=== PATIENT | female | born 1930 | race Caucasian/White ===

== ENCOUNTER 2017-04-05 17:01 | Inpatient (IN) | payer MEDICARE ==
[2017-04-05] MEDS ORDERED: Morphine INJ* 2 MG/ML 1 ML SYRINGE IV ONE (17:24)
[2017-04-05] MEDS ORDERED: Acetaminophen TAB* 325 MG PO ONE (17:24)
[2017-04-05 17:51] LABS: Hematocrit 40 % (35-47); Mean Corpuscular HGB Conc 33 g/dl (31-36); Mean Corpuscular Hemoglobin 28 pg (27-31); Mean Corpuscular Volume 86 fL (80-97); Mean Platelet Volume 8 um3 (7.4-10.4); Red Blood Count 4.58 10^6/ul (4.0-5.4); Red Cell Distribution Width 16 % (10.5-15); White Blood Count 6.9 10^3/ul (3.5-10.8)
[2017-04-05 18:04] LABS: BUN/Creatinine Ratio 29.7 (8-20); Calcium 9.9 mg/dL (8.6-10.3); EGFR Non-African American 39.6 (>60)
--- NOTE | 2017-04-05 18:15 | RAD ---
HISTORY: Fall, pain, external rotation of the hip COMPARISONS: None VIEWS: 1: frontal view of the chest FINDINGS: CARDIOMEDIASTINAL SILHOUETTE: The cardiomediastinal silhouette is normal. LESLIE: The leslie are normal. PLEURA: The costophrenic angles are sharp. No pleural abnormalities are noted. LUNG PARENCHYMA: There is hyperinflation. ABDOMEN: The upper abdomen is clear. There is no subphrenic gas. BONES AND SOFT TISSUES: No bone or soft tissue abnormalities are noted. OTHER: None. IMPRESSION: HYPERINFLATION. NO ACTIVE CARDIOPULMONARY DISEASE.
--- NOTE | 2017-04-05 18:15 | RAD ---
HISTORY: Fall, pain, external rotation COMPARISONS: None VIEWS: 3, Frontal view of the pelvis with frontal and crosstable lateral views of the right hip FINDINGS: BONE DENSITY: There is diffuse osteopenia. BONES: There is a minimally displaced intertrochanteric fracture of the right femur JOINTS: There is no arthropathy. ALIGNMENT: There is no dislocation. SOFT TISSUES: Unremarkable. OTHER FINDINGS: Degenerative changes are noted of the spine IMPRESSION: MINIMALLY DISPLACED INTERTROCHANTERIC FRACTURE OF THE RIGHT FEMUR
[2017-04-05] MEDS ORDERED: HYDROcodone/ACETAMIN 5-325 MG* 1 TAB PO ONE (18:29)
[2017-04-05] MEDS ORDERED: Acetaminophen TAB* 325 MG PO PRN (18:57)
[2017-04-05] MEDS ORDERED: Ondansetron INJ* 2 MG/ML VIAL IV PRN (18:57)
[2017-04-05] MEDS ORDERED: Morphine INJ* 2 MG/ML 1 ML SYRINGE IV PRN (18:57)
--- NOTE | 2017-04-05 19:06 | RAD ---
HISTORY: Right hip fracture COMPARISONS: Right hip dated April 05, 2017 VIEWS: 4, Frontal and lateral views of the right femur FINDINGS: BONE DENSITY: There is diffuse osteopenia. BONES: Again noted is a minimally displaced intertrochanteric fracture of the right femur. JOINTS: There is osteoarthritis of the knee. ALIGNMENT: There is no dislocation. SOFT TISSUES: There is peripheral arterial calcification. OTHER FINDINGS: None. IMPRESSION: 1. AGAIN NOTED IS A MINIMALLY DISPLACED FRACTURE OF THE PROXIMAL RIGHT FEMUR. 2. OSTEOPENIA. 3. OSTEOARTHRITIS. 4. PERIPHERAL ARTERIAL DISEASE.
[2017-04-05] MEDS ORDERED: Heparin VIAL(*) 5000 UNITS/ML VIAL (FIVE THOUSAND) SUBCUT SCH (22:00)
[2017-04-05] MEDS: Lisinopril TAB* 5 MG PO SCH (22:46)
--- NOTE | 2017-04-05 23:10 | HP ---
CC: Dr. Miller; Dr. Burns HISTORY AND PHYSICAL: DATE OF ADMISSION: 04/05/17 TIME OF EVALUATION: 6:35 p.m. PRIMARY CARE PROVIDER: Dr. Miller. CONSULTING ORTHOPEDIST: Dr. Burns. CHIEF COMPLAINT: Hip pain. HISTORY OF PRESENT ILLNESS: Ms. Wang is an 87-year-old lady with a past medical history of hypertension, hyperlipidemia, status post carotid endarterectomy, who presents to the emergency room after sustaining a fall in her garden, complaining of right hip pain. The patient states she was in her usual state of health today, and she was outside working in her garden, when she lost her balance, fell forward towards her right. She says that she immediately developed right hip pain and she was unable to stand up. She denies hitting her head. She denies neck pain. She did have some abrasions on her right arm. She states that her neighbor heard her cry for help and came to her aid. She was brought into the emergency room by EMS and she was found to have a right intertrochanteric femur fracture and the hospitalist service was called for further evaluation. The patient states that she is fairly healthy. She is active around her home. She is able to clean up her home, do her own grocery shopping and cooking. She states that she swims, laps an hour a day, every day at [facility]. She is able to walk more than a mile and she denies any chest pain, palpitations, or shortness of breath with it. She has noted no recent change in her health and she is feeling fairly well with her only complaint at this point is right hip pain when she moves. PAST MEDICAL HISTORY: 1. Hypertension. 2. Hyperlipidemia. 3. History of carotid endarterectomy. MEDICATION LIST: 1. Aspirin 81 mg p.o. daily. 2. Lisinopril unknown dose. 3. Unknown medication for cholesterol. ALLERGIES: No known drug allergies. FAMILY HISTORY: Reviewed and significant for longevity. Her mother had a history of hypertension. Her mother and father of old age in their 90s. SOCIAL HISTORY: The patient smoked from age 22 to 40s a pack a day and she quit. She denies alcohol or drug use. Surrogate decision maker is her daughter , Arlen Leonard, phone number is [phone]. REVIEW OF SYSTEMS: A 14-point review of systems was performed and all the pertinent negative and positive findings are in the HPI. PHYSICAL EXAMINATION GENERAL: The patient is a pleasant elderly lady, lying in the ER stretcher, in no acute distress. VITAL SIGNS: Temperature 97.7, heart rate is 67, respiratory rate is 14, oxygen saturation is 96% on room air, blood pressure is 163/66. HEENT: Pupils are equal. Moist mucous membranes. CVS: Normal S1 and S2. Regular rate and rhythm with no murmurs. CHEST: Breath sounds present bilaterally with no added sounds. ABDOMEN: Soft, nontender, nondistended. Bowel sounds are present. EXTREMITIES: The right lower extremity is externally rotated. She has good pulses, good capillary refill, sensation is intact. She has abrasions to her right forearm. NEURO: She is alert and oriented x3. Able to move all 4 extremities. DIAGNOSTIC STUDIES/LAB DATA: CBC showed a WBC of 6.9, hemoglobin of 13, hematocrit of 40, platelets of 237. Chemistry showed a sodium of 142, potassium of 4, chloride of 103, bicarb of 25, BUN of 38, creatinine of 1.2, glucose 103, calcium 9.9. Chest x-ray showed some hyperinflation, but no active cardiopulmonary disease. Right hip x-ray showed minimally displaced intertrochanteric fracture of the right femur. ASSESSMENT AND PLAN: Ms. Wang is an 87-year-old lady with a past medical history of hypertension, hyperlipidemia, status post carotid endarterectomy, that presented to the emergency room after a mechanical fall in her garden, complaining of right hip pain, found to have a right hip intertrochanteric fracture. 1. Right intertrochanteric femur fracture. The patient will be admitted to the surgical floor and a consultation was already requested with Dr. Burns for evaluation for surgical repair. The patient at this time is bedrest. We are going to put a Vizcarra catheter for comfort and she will receive symptomatic treatment. 2. Hypertension is uncontrolled at this time, probably secondary to pain. I am going to resume the patient's lisinopril at 5 mg a day. She does not know her exact dose, but I am going to try to obtain records from Dr. Miller's office. 3. History of carotid endarterectomy. I would like to continue her aspirin perioperatively if approved by surgeon. If the bleeding risk is unacceptable, we will then have to stop it. 4. DVT prophylaxis. The patient has a score of 8 on the DVT prophylaxis Risk Assessment Guide, and she will be started on subcutaneous heparin and SCDs. 5. Code status is full. TIME SPENT: Approximately 60 minutes was spent with the patient interview, medical records review, physical examination to complete this admission, more than half of this time was spent [id number] with the patient in coordination of care. [id number]/[facility] #: [id number] JULIO
--- NOTE | 2017-04-06 00:08 | HP ---
HISTORY AND PHYSICAL: ADDENDUM: I contacted the physician on-call covering for Dr. Miller (Dr. Chapis Mitchell). Unfortunately , she does not have access to the patient's record at this time. The patient obtains her medication from [facility], but this pharmacy is also closed at this time, so we will try to get her upd ated medication list tomorrow morning. Regarding her surgical risk, the patient seems to have great exercise capacity. She has no complaint s of chest pain, palpitations, or shortness of breath. At the time of this dictation, her EKG was n ot yet done, but if her EKG shows no major changes, I believe she is optimized for her surgical proc edure. The patient has RCRI of 0 or predicted 0.5% risk of cardiac complication. [id number]/[facility] #: [id number]
[2017-04-06 06:24] LABS: Hematocrit 32 % (35-47); Hemoglobin 10.8 g/dl (12.0-16.0); Mean Corpuscular HGB Conc 34 g/dl (31-36); Mean Corpuscular Hemoglobin 29 pg (27-31); Mean Corpuscular Volume 86 fL (80-97); Mean Platelet Volume 8 um3 (7.4-10.4); Red Blood Count 3.77 10^6/ul (4.0-5.4); Red Cell Distribution Width 15 % (10.5-15)
[2017-04-06 06:38] LABS: BUN/Creatinine Ratio 30.1 (8-20); Calcium 8.9 mg/dL (8.6-10.3); EGFR African American 73.7 (>60); EGFR Non-African American 57.3 (>60); Potassium 3.9 mmol/L (3.5-5.0)
--- NOTE | 2017-04-06 08:32 | PN ---
Progress Note - Progress Note Date of Service: 04/06/17 Note: H and P update Full h and p dictated on system. Plan for R hip IMN for her intertrochanteric hip fracture today Pt optimized per medicine
[2017-04-06] MEDS ORDERED: Aspirin EC Low Dose* 81 MG TAB.EC PO SCH (09:00)
[2017-04-06] MEDS ORDERED: NS 0.9% 1000 ML* 1,000 ML IV SCH (09:30)
--- NOTE | 2017-04-06 09:39 | CONS ---
CC: Primary Care Physician CONSULTATION REPORT:History of Physical Date of admission 04/05/17 DATE OF service and date of CONSULT: 04/06/17 CHIEF COMPLAINT: Right hip pain. HISTORY OF PRESENT ILLNESS: Briefly, Estee Wang is a fairly healthy 87-year- old female, who was gardening and she tripped over something in the garden, landed hard on her right elbow and right hip. She was unable to weightbear. She was brought to the emergency room by EMS and was found to have a right intertrochanteric hip fracture. She is very active. She is a community ambulator, does not use any assistive devices. She does her own grocery shopping, cooking, she swims laps an hour a day at [facility]. She walks more than a mile, and otherwise is in her usual state of health. PAST MEDICAL HISTORY: Significant for hypertension and hyperlipidemia. PAST SURGICAL HISTORY: Significant for carotid endarterectomy. MEDICATIONS: Include: 1. Aspirin. 2. Lisinopril. 3. Cholesterol medications. ALLERGIES: NKDA. FAMILY HISTORY: Reviewed and significant for longevity. Mother, history of hypertension. Father and mother in their 90s. SOCIAL HISTORY: She quit smoking in her 40s. She denies alcohol or drug use. Her surrogate decision maker is her daughter. REVIEW OF SYSTEMS: A 14-point review of systems was reviewed with the patient, significant for right hip pain, otherwise remainder of systems is negative. PHYSICAL EXAM: She is in no acute distress. She is well developed, well nourished. She is oriented x3. She has pleasant mood and normal affect. She is sitting comfortably in the bed. Vitals: Temperature of 98.3, pulse rate 66 , respiratory rate 16, O2 saturation 97% on room air, and blood pressure 141/ 51. EOMI. Chest is clear to auscultation. Heart has regular rate and rhythm. Abdomen is soft and nontender. Examination of the right hip demonstrates the skin is intact. The right hip is externally rotated and shortened. She is able to flex and extend her toes. Dorsiflexion and plantar flexion are equal. Sensate to light touch about the first dorsal webspace, medial, lateral, dorsal , and plantar foot. She has 2+ PT pulse. Her calf is soft and nontender. Examination of the right elbow demonstrates there is an abrasion there with a dressing on top of it. She has full range of motion of her elbow. DIAGNOSTIC STUDIES/LAB DATA: X-rays demonstrate a right intertrochanteric hip fracture. White blood cell count is 7, hematocrit of 32, and platelet count of 189. Sodium of 133, potassium 3.9, chloride 101, carbon dioxide 25, BUN 28, creatinine 0.93, glucose 120, and calcium 8.9. ASSESSMENT AND PLAN: She has a right intertrochanteric hip fracture. She is an ambulator and is fairly healthy. We will plan for a right hip IM nail. She is pending medical optimization, but we will likely take her today after Medicine contacts us. Risks and benefits discussed at length with the patient included, but not limited to, bleeding; infection; damage to nerves, vessels, and surrounding structures; wound nonhealing; persistent pain; need for further surgery; refracture; failure of the hardware; nonunion; malunion; risk of anesthesia; risk of DVT. We also talked about loss of mobility and possibly needing the SNF after surgery. We will plan for right hip TFN later this morning. [id number]/[facility] #: [id number] MTDD
[2017-04-06] MEDS ORDERED: ceFAZolin 2 GM PREMIX (*) 50 ML IVPB ONE (10:47)
[2017-04-06] MEDS ORDERED: KETAMINE HCL* 50 MG/ML 10 ML VIAL ONE (11:13)
[2017-04-06] MEDS ORDERED: Midazolam* 1 MG/ML 5 ML VIAL (5 MG) ONE (11:13)
[2017-04-06] MEDS ORDERED: fentaNYL* 50 MCG/ML 2 ML VIAL (100 MCG VIAL) IV PRN (11:31)
[2017-04-06] MEDS ORDERED: Ondansetron INJ* 2 MG/ML VIAL IV PRN (11:31)
[2017-04-06] MEDS: Lisinopril TAB* 5 MG PO SCH (11:43)
[2017-04-06] MEDS ORDERED: Phenylephrine IV* 40 MCG/ML 10 ML SYRINGE ONE (12:16)
[2017-04-06] MEDS ORDERED: EPHEDrine (Pressors)* 50 MG/ML VIAL ONE (12:32)
[2017-04-06] MEDS ORDERED: Bupivacaine 0.25% SDV* 30 ML ONE (13:16)
--- NOTE | 2017-04-06 13:38 | PN ---
Subjective Date of Service: 04/06/17 Interval History: HOSPITALIST PROGRESS NOTE Patient seen and examined at bedside. She offers no complaints at this time. Denies pain. Family History: Unchanged from Admission Social History: Unchanged from Admission Past Medical History: Unchanged from Admission Objective Active Medications: Acetaminophen (Tylenol Tab*) 650 mg PO Q6H PRN PRN Reason: pain/fever Aspirin (Aspirin Ec Low Dose*) 81 mg PO DAILY [facility] Last Admin: 04/06/17 11:43 Dose: Not Given Sodium Chloride (Ns 0.9% 1000 Ml*) 1,000 mls @ 75 mls/hr IV PER RATE [facility] Lisinopril (Prinivil Tab*) 5 mg PO DAILY [facility] Last Admin: 04/06/17 11:43 Dose: Not Given Morphine Sulfate (Morphine Inj (Syringe)*) 2 mg IV Q4H PRN PRN Reason: PAIN Ondansetron HCl (Zofran Inj*) 4 mg IV Q6H PRN PRN Reason: NAUSEA Vital Signs 04/06/17 04/06/17 04/06/17 03:36 07:31 08:00 Temperature 97.4 F 98.3 F Pulse Rate 63 66 Respiratory 16 16 16 Rate Blood Pressure 131/49 141/51 (mmHg) O2 Sat by Pulse 97 97 Oximetry Oxygen Devices in Use Now: None Appearance: Pleasant elderly lady lying in bed in NAD. Eyes: No Scleral Icterus Ears/Nose/Mouth/Throat: Mucous Membranes Moist Neck: Trachea Midline, - - No carotid bruits Respiratory: Symmetrical Chest Expansion and Respiratory Effort, Clear to Auscultation Cardiovascular: RRR - Normal S1 and S2 Abdominal: NL Sounds; No Tenderness; No Distention Extremities: - - RLE externally rotated, good capillary refill, sensation intact , can wiggle toes Neurological: Alert and Oriented x 3, NL Muscle Strength and Tone Lines/Tubes/Other Access: Clean, Dry and Intact Peripheral IV Result Diagrams: 04/06/17 05:36 04/06/17 05:36 Assess/Plan/Problems-Billing Assessment: Mrs. Wang is an 87yo F with PMH of HTN, HLD, s/p bilateral carotid endarterectomy, who presented to ED after a mechanical fall, found to have a right intertrochanteric femur fracture. - Patient Problems (1) Fracture, intertrochanteric, right femur Comment: - Management as per Ortho. - Patient is medically optmized for proposed procedure. (2) HTN (hypertension) Comment: - Better controlled. - Continue lower dose Lisinopril. (3) H/O carotid endarterectomy Comment: - Will continue Aspirin perioperatively. - As per daughter, patient was supposed to have carotid US as outpatient. She would like to pursue it while she's here. (4) DVT prophylaxis Comment: - As per orthopedics. (5) Full code status Status and Disposition: Inpatient for management of hip fracture, requiring >48h for stabilization. Dr. Miller to assume patient's care tomorrow.
--- NOTE | 2017-04-06 13:49 | RAD ---
INDICATION: Right femur internal fixation. Fall, right femur fracture COMPARISONS: April 05, 2017 TECHNIQUE: Fluoroscopy was provided for a surgical procedure. Total fluoroscopy time is: 65 seconds FINDINGS: Spot images demonstrate internal fixation of the right femur IMPRESSION: FLUOROSCOPY WAS PROVIDED FOR A SURGICAL PROCEDURE CPT II Codes: 6045F
[2017-04-06] MEDS: oxyCODONE/Acetamin 5/325 MG* TAB PO PRN (16:37)
[2017-04-06] MEDS ORDERED: ceFAZolin 1 GM* Q8H x 3 doses IVPB SCH ×2 (20:00)
[2017-04-06] MEDS: ceFAZolin 1 GM* Q8H x 3 doses IVPB SCH ×2 (20:21)
[2017-04-07] MEDS: ceFAZolin 1 GM* Q8H x 3 doses IVPB SCH ×4 (04:03→12:19)
[2017-04-07] MEDS: oxyCODONE/Acetamin 5/325 MG* TAB PO PRN ×3 (04:03→15:54)
--- NOTE | 2017-04-07 09:04 | PN ---
Subjective - Subjective Reason for Note: Progress Note History: She is 1 day post right hip internal fixation. She tolerated the procedure well and is sitting in a chair eating b'fast. She is fully awake, oriented and conversational. She describes this as a mechanical fall after tripping on a cement block. She is fit - she continues to work at 87 years and swims every day. She denies any nausea, uncontrolled pain or cardiovascular symptoms Active Problems: Active Problems Fracture, intertrochanteric, right femur (Acute) S72.141A - Management as per Ortho. - Patient is medically optmized for proposed procedure. Full code status (Acute) Z78.9 Osteoporosis (Acute) M81.0 Chronic renal disease, stage III (Chronic) N18.3 DVT prophylaxis (Chronic) [id number] - As per orthopedics. H/O carotid endarterectomy (Chronic) Z98.890 - Will continue Aspirin perioperatively. - As per daughter, patient was supposed to have carotid US as outpatient. She would like to pursue it while she 's here. HTN (hypertension) (Chronic) I10 - Better controlled. - Continue lower dose Lisinopril. Current Medications: Current Medications Acetaminophen (Tylenol Tab*) 650 mg PO Q6H PRN PRN Reason: pain/fever Enoxaparin Sodium (Lovenox(*)) 30 mg SUBCUT 1200 INDIRA Sodium Chloride (Ns 0.9% 1000 Ml*) 1,000 mls @ 75 mls/hr IV PER RATE [facility] Last Admin: 04/07/17 05:36 Dose: 75 mls/hr Cefazolin Sodium 1 gm/ Sodium (Chloride) 50 mls @ 200 mls/hr IVPB Q8H [facility] Stop: 04/07/17 12:14 Last Admin: 04/07/17 04:03 Dose: 200 mls/hr Lisinopril (Prinivil Tab*) 5 mg PO DAILY [facility] Last Admin: 04/06/17 11:43 Dose: Not Given Morphine Sulfate (Morphine Inj (Syringe)*) 2 mg IV Q4H PRN PRN Reason: PAIN Ondansetron HCl (Zofran Inj*) 4 mg IV Q6H PRN PRN Reason: NAUSEA Oxycodone/Acetaminophen (Percocet 5/325 Tab*) 1 tab PO Q4H PRN PRN Reason: PAIN Last Admin: 04/07/17 04:03 Dose: 1 tab Oxycodone/Acetaminophen (Percocet 5/325 Tab*) 2 tab PO Q4H PRN PRN Reason: MODERATE PAIN Last Admin: 04/06/17 16:37 Dose: 2 tab Home Medications: Home Medications Medication Instructions Recorded Confirmed Type Aspirin [Aspirin 81 MG TAB] 81 mg PO DAILY 04/06/17 04/06/17 History Calcium 800 units PO DAILY 04/06/17 04/06/17 History Lisinopril [Zestril 20 MG-] 20 mg PO DAILY 04/06/17 04/06/17 History Multivitamins 1 tab PO DAILY 04/06/17 04/06/17 History Pravastatin Sodium [Pravachol] 80 mg PO DAILY 04/06/17 04/06/17 History Solifenacin(NF) [Vesicare(NF)] 5 mg PO DAILY 04/06/17 04/06/17 History Allergies: Allergies Allergy/AdvReac Type Severity Reaction Status Date / Time No Known Allergies Allergy Verified 10/30/15 13:37 Objective - Vital Signs Vital Signs: Vital Signs 04/06/17 04/06/17 04/06/17 13:40 13:45 13:50 Temperature 97.7 F Pulse Rate 93 89 87 Respiratory 20 20 20 Rate Blood Pressure 115/49 110/53 113/48 (mmHg) O2 Sat by Pulse 97 99 99 Oximetry 04/06/17 04/06/17 04/06/17 13:55 14:00 14:15 Temperature Pulse Rate 87 85 96 Respiratory 20 18 18 Rate Blood Pressure 115/52 118/60 124/61 (mmHg) O2 Sat by Pulse 99 99 97 Oximetry 04/06/17 04/06/17 04/06/17 14:24 14:55 16:00 Temperature 97.5 F 98.3 F Pulse Rate 96 94 108 Respiratory 18 15 17 Rate Blood Pressure 134/57 130/50 129/41 (mmHg) O2 Sat by Pulse 97 99 95 Oximetry 04/06/17 04/06/17 04/06/17 16:37 17:05 18:37 Temperature 98.2 F Pulse Rate 98 Respiratory 16 16 18 Rate Blood Pressure 128/55 (mmHg) O2 Sat by Pulse 94 Oximetry 04/06/17 04/06/17 04/06/17 19:15 19:20 21:04 Temperature 97.9 F 98.3 F Pulse Rate 96 90 Respiratory 16 16 14 Rate Blood Pressure 103/50 105/51 (mmHg) O2 Sat by Pulse 95 95 Oximetry 04/06/17 04/07/17 04/07/17 23:34 04:03 04:12 Temperature 98.1 F 98.4 F Pulse Rate 85 90 Respiratory 18 18 20 Rate Blood Pressure 114/42 137/51 (mmHg) O2 Sat by Pulse 93 97 Oximetry 04/07/17 04/07/17 06:03 07:20 Temperature 98.2 F Pulse Rate 88 Respiratory 16 16 Rate Blood Pressure 110/39 (mmHg) O2 Sat by Pulse 92 Oximetry - Intake and Output Intake and Output: Intake & Output 04/04/17 04/05/17 04/06/17 04/07/17 11:59 11:59 11:59 11:59 Intake Total 325 2383 Output Total 575 825 Balance -250 1558 Weight 115 lb Intake: IV Fluids 1980 LR 1000 NS (0.9%) 980 IVPB 113 ABX - CEFAZOLIN 113 Oral 325 290 Output: Vizcarra 575 625 Estimated Blood Loss 200 Other: # Bowel Movements 0 ADLs: Meal Record Start: 04/05/17 20: 54 Freq: Status: Active Created 04/05/17 20:54 System (Rec: 04/05/17 20:54 System [id number]) Intake and Output Start: 04/05/17 17: 15 Freq: Status: Active Created 04/05/17 17:15 System (Rec: 04/05/17 17:15 System [id number]) Intake and Output Start: 04/05/17 20: 54 Freq: DAILY@0600,1400,2200 Status: Active Created 04/05/17 20:54 System (Rec: 04/05/17 20:54 System [id number]) Document 04/05/17 22:00 [id number] (Rec: 04/05/17 22:14 [id number] [id number]) Document 04/06/17 05:45 [id number] (Rec: 04/06/17 05:46 [id number] SSU-M13) Document 04/06/17 09:55 [id number] (Rec: 04/06/17 15:37 [id number] SSU-C08) Document 04/06/17 22:00 [id number] (Rec: 04/06/17 22:33 [id number] SSU-C11) Document 04/07/17 05:56 [id number] (Rec: 04/07/17 05:57 [id number] SSU-C11) - Physical Exam General: No Cyanosis, No Anemia, No Jaundice, No Clubbing Lungs and Chest: Yes: Chest Expansion Full, Chest Expansion Symetrica, Percussion Note Resonant, Vessicular Breath Sounds. No: Crackles, Wheezes, Respiratory Distress Heart Rate and Rhythm: Regular JVP: Not Elevated Additional Cardiovascular: Yes: Normal Heart Sounds. No: Heart Murmur, Pedal Edema Abdominal Exam: Yes: Soft, Bowel Sounds Present. No: Distention, Abdominal Tenderness Assessment - Problem List Assessment: Patient Problems Fracture, intertrochanteric, right femur (Acute) Full code status (Acute) Osteoporosis (Acute) Chronic renal disease, stage III (Chronic) DVT prophylaxis (Chronic) H/O carotid endarterectomy (Chronic) HTN (hypertension) (Chronic) Plan: Fracture, intertrochanteric, right femur (Acute) She is 1 day post right him intramedullary nailing. She has tolerated the procedure well. She is fit usually and she swims daily. I think she is an excellent candidate for PMRU and will obtain a consultation. I will have the Vizcarra removed. I will stop IVF. 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 I discussed the above with the patient.
[2017-04-07] MEDS: Lisinopril TAB* 5 MG PO SCH (09:40)
--- NOTE | 2017-04-07 10:06 | PN ---
Progress Note - Progress Note Date of Service: 04/07/17 SOAP: Subjective: []Patient seen OOB in chair, reading paper. She is alert and oriented, pleasant. States she had moderate pain upon transferring to chair this am but quite comfortable sitting currently. Denies SOB, CP, dizziness. Objective: [] Vital Signs Temp 98.2 F 04/07/17 07:20 Pulse 88 04/07/17 07:20 Resp 16 04/07/17 09:40 BP 110/39 04/07/17 07:20 Pulse Ox 92 04/07/17 07:20 Intake & Output 04/06/17 04/07/17 04/07/17 18:59 06:59 18:59 Intake Total 1000 1383 306 Output Total 600 425 100 Balance 400 958 206 Intake: IV Fluids 1000 980 306 LR 1000 NS (0.9%) 980 306 IVPB 113 ABX - CEFAZOLIN 113 Oral 290 Output: Vizcarra 400 425 100 Estimated Blood Loss 200 Right hip dressing is dry and intact calf NT and soft +DF/PF right ankle sensation intact distally Assessment: []s/p TFN for IT fracture right hip POD #1 Plan: []PT/OT WBAT RLE Lovenox Lives alone, probable rehab, PMRU consult placed by Dr. Miller
[2017-04-07] MEDS: Enoxaparin(*) 30 MG/0.3 ML SYR SUBCUT SCH (12:21)
--- NOTE | 2017-04-07 22:24 | PN ---
Progress Note - Progress Note Date of Service: 04/07/17 Note: seen at 7 pm in bed eating dinner. alert and pleasant. some discomfort but was able to ambulate with walker today. denies sob, cp, numbness, tingling Temp Pulse Resp BP Pulse Ox 98.8 F 80 21 105/32 95 04/07/17 19:25 04/07/17 19:25 04/07/17 19:25 04/07/17 19:25 04/07/17 19:25 NAD. right hip dressing intact. able to DF/PF foot, silt grossly distally. brisk cap refill. calf soft, nontender A/P POD#1 from R hip tfn doing well. wbat pt/ot completed post op abx dvt ppx 6 weeks dressing change tomorrow dispo when stable snf or pmru
[2017-04-08] MEDS: oxyCODONE/Acetamin 5/325 MG* TAB PO PRN ×4 (02:41→21:25)
[2017-04-08 06:40] LABS: Hematocrit 22 % (35-47); Hemoglobin 7.6 g/dl (12.0-16.0); Mean Corpuscular HGB Conc 34 g/dl (31-36); Mean Corpuscular Hemoglobin 29 pg (27-31); Mean Corpuscular Volume 87 fL (80-97); Mean Platelet Volume 8 um3 (7.4-10.4); Red Blood Count 2.58 10^6/ul (4.0-5.4); Red Cell Distribution Width 16 % (10.5-15); White Blood Count 7.8 10^3/ul (3.5-10.8)
[2017-04-08 06:55] LABS: BUN/Creatinine Ratio 16.2 (8-20); EGFR African American 60.1 (>60); EGFR Non-African American 46.7 (>60); Potassium 4.1 mmol/L (3.5-5.0)
--- NOTE | 2017-04-08 08:29 | PN ---
Subjective - Subjective Reason for Note: Progress Note History: She is doing well. She managed to work well with PT and OT yesterday and they think she is an excellent candidate for PMRU if her insurance agrees to cover this, otherwise she will require a period at a SNF - she is accepting of this. She has no pain at rest. She is taking oxycodone and last night she had an episode of disorientation according to the RN notes. However, she is fully oriented and conversational this morning. She is able to void with the roman removed. Her appetite is good and she has no nausea. She has not had a BM. Active Problems: Active Problems Fracture, intertrochanteric, right femur (Acute) S72.141A - Management as per Ortho. - Patient is medically optmized for proposed procedure. Full code status (Acute) Z78.9 Osteoporosis (Acute) M81.0 Chronic renal disease, stage III (Chronic) N18.3 DVT prophylaxis (Chronic) [id number] - As per orthopedics. H/O carotid endarterectomy (Chronic) Z98.890 - Will continue Aspirin perioperatively. - As per daughter, patient was supposed to have carotid US as outpatient. She would like to pursue it while she 's here. HTN (hypertension) (Chronic) I10 - Better controlled. - Continue lower dose Lisinopril. Current Medications: Current Medications Acetaminophen (Tylenol Tab*) 650 mg PO Q6H PRN PRN Reason: pain/fever Enoxaparin Sodium (Lovenox(*)) 30 mg SUBCUT 1200 [facility] Last Admin: 04/07/17 12:21 Dose: 30 mg Lisinopril (Prinivil Tab*) 5 mg PO DAILY [facility] Last Admin: 04/07/17 09:40 Dose: 5 mg Morphine Sulfate (Morphine Inj (Syringe)*) 2 mg IV Q4H PRN PRN Reason: PAIN Ondansetron HCl (Zofran Inj*) 4 mg IV Q6H PRN PRN Reason: NAUSEA Oxycodone/Acetaminophen (Percocet 5/325 Tab*) 1 tab PO Q4H PRN PRN Reason: PAIN Last Admin: 04/07/17 15:54 Dose: 1 tab Oxycodone/Acetaminophen (Percocet 5/325 Tab*) 2 tab PO Q4H PRN PRN Reason: MODERATE PAIN Last Admin: 04/08/17 02:41 Dose: 2 tab - Review of Systems Constitutional Symptoms: No: Weakness, Fatigue, Fever, Night Sweats Pulmonary: Negative: Cough, Sputum, Respiratory Distress Cardiology: Negative: Chest Pain, Palpitations Gastroenterology: Positive: Constipation Negative: Abdominal Pain, Nausea Home Medications: Home Medications Medication Instructions Recorded Confirmed Type Aspirin [Aspirin 81 MG TAB] 81 mg PO DAILY 04/06/17 04/06/17 History Calcium 800 units PO DAILY 04/06/17 04/06/17 History Lisinopril [Zestril 20 MG-] 20 mg PO DAILY 04/06/17 04/06/17 History Multivitamins 1 tab PO DAILY 04/06/17 04/06/17 History Pravastatin Sodium [Pravachol] 80 mg PO DAILY 04/06/17 04/06/17 History Solifenacin(NF) [Vesicare(NF)] 5 mg PO DAILY 04/06/17 04/06/17 History Allergies: Allergies Allergy/AdvReac Type Severity Reaction Status Date / Time No Known Allergies Allergy Verified 10/30/15 13:37 Objective - Vital Signs Vital Signs: Vital Signs 04/07/17 04/07/17 04/07/17 09:40 11:37 11:40 Temperature 97.6 F Pulse Rate 74 Respiratory 16 16 16 Rate Blood Pressure 137/45 (mmHg) O2 Sat by Pulse 94 Oximetry 04/07/17 04/07/17 04/07/17 15:24 15:54 16:00 Temperature 99.7 F Pulse Rate 95 Respiratory 17 16 Rate Blood Pressure 129/37 (mmHg) O2 Sat by Pulse 92 92 Oximetry 04/07/17 04/07/17 04/07/17 17:54 19:14 19:25 Temperature 98.8 F Pulse Rate 80 Respiratory 16 16 21 Rate Blood Pressure 105/32 (mmHg) O2 Sat by Pulse 95 Oximetry 04/07/17 04/08/17 04/08/17 23:52 02:41 04:03 Temperature 99.5 F 98.3 F Pulse Rate 98 76 Respiratory 20 18 16 Rate Blood Pressure 130/42 100/34 (mmHg) O2 Sat by Pulse 92 94 Oximetry 04/08/17 04/08/17 04:41 07:28 Temperature 97.6 F Pulse Rate 73 Respiratory 18 16 Rate Blood Pressure 106/35 (mmHg) O2 Sat by Pulse 94 Oximetry - Intake and Output Intake and Output: Intake & Output 04/05/17 04/06/17 04/07/17 04/08/17 11:59 11:59 11:59 11:59 Intake Total 325 2889 965 Output Total 575 925 450 Balance -250 1964 515 Weight 115 lb Intake: IV Fluids 2286 LR 1000 NS (0.9%) 1286 IVPB 113 ABX - CEFAZOLIN 113 Oral 325 490 965 Output: Urine 450 Roman 575 725 Estimated Blood Loss 200 Other: # Bowel Movements 0 0 ADLs: Meal Record Start: 04/05/17 20: 54 Freq: Status: Active Created 04/05/17 20:54 System (Rec: 04/05/17 20:54 System [id number]) Document 04/07/17 10:41 [id number] (Rec: 04/07/17 10:41 [id number] [id number]) Document 04/07/17 14:13 [id number] (Rec: 04/07/17 14:13 [id number] SSU-C19) Document 04/07/17 18:51 [id number] (Rec: 04/07/17 18:52 [id number] SSU-C09) Intake and Output Start: 04/05/17 17: 15 Freq: Status: Active Created 04/05/17 17:15 System (Rec: 04/05/17 17:15 System [id number]) Intake and Output Start: 04/05/17 20: 54 Freq: DAILY@0600,1400,2200 Status: Active Created 04/05/17 20:54 System (Rec: 04/05/17 20:54 System [id number]) Document 04/05/17 22:00 [id number] (Rec: 04/05/17 22:14 [id number] SSU-C11) Document 04/06/17 05:45 [id number] (Rec: 04/06/17 05:46 [id number] SSU-M13) Document 04/06/17 09:55 [id number] (Rec: 04/06/17 15:37 [id number] SSU-C08) Document 04/06/17 22:00 [id number] (Rec: 04/06/17 22:33 [id number] SSU-C11) Document 04/07/17 05:56 [id number] (Rec: 04/07/17 05:57 [id number] SSU-C11) Document 04/07/17 18:09 [id number] (Rec: 04/07/17 18:10 [id number] SSU-C09) Document 04/07/17 22:00 [id number] (Rec: 04/07/17 22:02 [id number] SSU-C09) Document 04/08/17 02:42 [id number] (Rec: 04/08/17 02:42 [id number] SSU-C19) Document 04/08/17 05:49 [id number] (Rec: 04/08/17 05:49 [id number] SSU-C08) - Physical Exam General: No Cyanosis, No Anemia, No Jaundice, No Clubbing Lungs and Chest: Yes: Chest Expansion Full, Chest Expansion Symetrica, Percussion Note Resonant, Vessicular Breath Sounds. No: Crackles, Wheezes Heart Rate and Rhythm: Regular Additional Cardiovascular: Yes: Normal Heart Sounds. No: Heart Murmur, Carotid Bruits, Pedal Edema Abdominal Exam: Yes: Soft, Bowel Sounds Present. No: Distention, Abdominal Mass , Abdominal Tenderness - Extremities Cranial Nerves II-XII Intact: Yes Limbs: Normal Power, Normal Tone - Neuro Orientation: A/O x3 Speech: Normal Results - Results Lab Results: Laboratory Results - last 24 hr 04/08/17 04/08/17 05:37 05:42 WBC 7.8 RBC 2.58 L Hgb 7.6 L Hct 22 L MCV 87 MCH 29 MCHC 34 RDW 16 H Plt Count 144 L MPV 8 Neut % (Auto) 81.1 Lymph % (Auto) 11.0 L Hale % (Auto) 7.1 Eos % (Auto) 0.6 Baso % (Auto) 0.2 Absolute Neuts (auto) 6.3 Absolute Lymphs (auto) 0.9 L Absolute Monos (auto) 0.6 Absolute Eos (auto) 0 Absolute Basos (auto) 0 Absolute Nucleated RBC 0 Nucleated RBC % 0 Sodium 129 L Potassium 4.1 Chloride 100 L Carbon Dioxide 24 Anion Gap 5 BUN 18 Creatinine 1.11 H Est GFR ( Amer) 60.1 Est GFR (Non-Af Amer) 46.7 BUN/Creatinine Ratio 16.2 Glucose 120 H Calcium 8.0 L Assessment - Problem List Assessment: Patient Problems Fracture, intertrochanteric, right femur (Acute) Full code status (Acute) Osteoporosis (Acute) Chronic renal disease, stage III (Chronic) DVT prophylaxis (Chronic) H/O carotid endarterectomy (Chronic) HTN (hypertension) (Chronic) Plan: Fracture, intertrochanteric, right femur (Acute) She is progressing well. She has anemia, but is asymptomatic. I will start her on iron - I think she will tolerate this. I note she has not been started on warfarin. Full code status (Acute) Osteoporosis (Acute) secondary diagnosis Chronic renal disease, stage III (Chronic) secondary diagnosis DVT prophylaxis (Chronic) she requires anticoagulation - I will start her on warfarin and low molecular weight heparin. H/O carotid endarterectomy (Chronic) this needs coverage with either anticoagulation/aspirin. I am discussing with pharmacy whether a combination is indicated, or if this leads to increased bleeding complications. HTN (hypertension) (Chronic) not a problem. I spoke with Xin Downey (one of her daughters) and with the patient. She is developing early dementia. I explained the above and they agree with management plan. The family is coming up with a home care plan - she lives on a single level and family members may be able to cover her care.
[2017-04-08] MEDS: Ferrous Sulfate TAB* 325 MG PO SCH (09:07)
[2017-04-08] MEDS: Ascorbic Acid TAB* 500 MG PO SCH (09:07)
[2017-04-08] MEDS: Lisinopril TAB* 5 MG PO SCH (09:07)
--- NOTE | 2017-04-08 09:48 | PN ---
Progress Note - Progress Note Date of Service: 04/08/17 SOAP: Subjective: []Patient seen OOB in chair. She denies hip pain or other complaints and is doing well. She is unsure about SNF vs home with VNS and family to help with needs. Objective: [] Vital Signs Temp 97.6 F 04/08/17 07:28 Pulse 73 04/08/17 07:28 Resp 16 04/08/17 09:07 BP 106/35 04/08/17 07:28 Pulse Ox 94 04/08/17 07:28 Intake & Output 04/07/17 04/08/17 04/08/17 18:59 06:59 18:59 Intake Total 1111 360 360 Output Total 250 300 Balance 861 60 360 Intake: IV Fluids 306 NS (0.9%) 306 Oral 805 360 360 Output: Urine 150 300 Vizcarra 100 Other: # Bowel Movements 0 Laboratory Results - last 24 hr 04/08/17 04/08/17 05:37 05:42 WBC 7.8 RBC 2.58 L Hgb 7.6 L Hct 22 L MCV 87 MCH 29 MCHC 34 RDW 16 H Plt Count 144 L MPV 8 Neut % (Auto) 81.1 Lymph % (Auto) 11.0 L Mingo % (Auto) 7.1 Eos % (Auto) 0.6 Baso % (Auto) 0.2 Absolute Neuts (auto) 6.3 Absolute Lymphs (auto) 0.9 L Absolute Monos (auto) 0.6 Absolute Eos (auto) 0 Absolute Basos (auto) 0 Absolute Nucleated RBC 0 Nucleated RBC % 0 Sodium 129 L Potassium 4.1 Chloride 100 L Carbon Dioxide 24 Anion Gap 5 BUN 18 Creatinine 1.11 H Est GFR ( Amer) 60.1 Est GFR (Non-Af Amer) 46.7 BUN/Creatinine Ratio 16.2 Glucose 120 H Calcium 8.0 L Right hip dressings removed, moderate serosanguenous discharge from proximal incision, scant drainage from the distal two. mile thigh edema and mild ecchymosis proximally. All wounds appear benign, rashad intact. calf NT and soft +DF/PF right ankle sensation intact distally Assessment: []s/p TFN for IT fx right hip POD #2 Plan: []PT/OT WBAT RLE Dr. Miller watching anemia- asymptomatic- started on Iron Lovenox PMRU/SNF vs home with help
[2017-04-08] MEDS: Enoxaparin(*) 30 MG/0.3 ML SYR SUBCUT SCH (13:31)
[2017-04-08] MEDS ORDERED: Warfarin TAB(*) 5 MG PO ONE (17:00)
[2017-04-08] MEDS: Magnesium Hydroxide LIQ* 30 ML UDC PO PRN (21:25)
[2017-04-09 05:45] LABS: Hematocrit 21 % (35-47); Hemoglobin 7.3 g/dl (12.0-16.0); Mean Platelet Volume 8 um3 (7.4-10.4)
[2017-04-09] MEDS ORDERED: Polyethylene Glycol 3350 BTL* 238 GM BTL PO PRN (08:07)
[2017-04-09 08:14] VITALS: BP 115/39
[2017-04-09] MEDS ORDERED: Polyethylene Glycol 3350* 17 GM PACKET PO PRN (08:38)
[2017-04-09] MEDS: Magnesium Hydroxide LIQ* 30 ML UDC PO PRN (08:45)
[2017-04-09] MEDS: Ferrous Sulfate TAB* 325 MG PO SCH (08:46)
[2017-04-09] MEDS: Ascorbic Acid TAB* 500 MG PO SCH (08:46)
[2017-04-09] MEDS: Lisinopril TAB* 5 MG PO SCH (08:46)
[2017-04-09] MEDS ORDERED: Aspirin EC Low Dose* 81 MG TAB.EC PO SCH (09:00)
[2017-04-09] MEDS: Enoxaparin(*) 30 MG/0.3 ML SYR SUBCUT SCH (10:12)
--- NOTE | 2017-04-09 10:14 | DS ---
CC: [facility]; Dr. Mic Burns * DISCHARGE SUMMARY: DATE OF ADMISSION: 04/05/17 DATE OF DISCHARGE: 04/09/17 DISCHARGE DIAGNOSES: 1. Mechanical fall with intratrochanteric fracture of right femur, which is minimally displaced. 2. Anemia. 3. Anticoagulation to prevent deep venous thrombosis. SECONDARY DIAGNOSES: 1. Osteoporosis 2. Stage III chronic renal disease. 3. History of carotid endarterectomy. 4. Hypertension. 5. 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 HISTORY: Estee Wang is an 87-year-old right-handed white female. Her presentation is documented in Dr. Delfina Coronel's admitting history and physical. In short, she was in her garden, had a mechanical fall and sustained a right intertrochanteric femur fracture. In the emergency room, on physical examination, temperature 97.7, heart rate 67 , respirations 14, oxygen saturation 96% on room air. Blood pressure 163/66. Examination was consistent with right hip fracture. Her right lower extremity was externally rotated. Good peripheral pulses. Cardiovascular system and pulmonary systems were benign. Initial labs, CBC with white count of 6.9, hemoglobin 13, hematocrit 40, platelets 237. Chemistry: Sodium 142, potassium 4, chloride 103, bicarbonate 25, BUN 38, creatinine 1.2, glucose 103. Calcium 9.9. Chest x-ray showed no active cardiopulmonary disease. Right hip showed minimally displaced intertrochanteric fracture of the right femur. The medical team noted a history of hypertension, hyperlipidemia, post carotid endarterectomy, and felt that she was stable medically for surgery. OTHER INVESTIGATIONS: On 04/05/17, she had a 12-lead EKG, sinus rhythm, rate 60 , TN interval 133, QTc 441, QRS axis 36. No ST-T wave changes or signs of ischemia or dysrhythmia. CONSULTATIONS: 04/06/17, Dr. Mic Burns. Her consultation is part of the electronic medical record. She noted the right intertrochanteric hip fracture and felt that she was healthy and planned a right hip intramedullary nail. She was taken to the operating room by Dr. Burns and had a trochanteric fixation nail placed on 04/07/17, she tolerated the procedure well. SUBSEQUENT HOSPITAL COURSE: She had good pain control. She remained constipated. She was started on anticoagulation first with Lovenox and then with warfarin. Aspirin, after consideration of risks for bleeding and with informed consent, was restarted to prevent to stroke. She took a dose of aspirin 81 mg daily. She was followed by PT and OT and who assessed that she was a good candidate for rehabilitation. Her Vizcarra catheter was removed. LABORATORY FINDINGS: On 04/08/17, sodium 129, potassium 4.1, chloride of 100, BUN 18, creatinine 1.1, glucose 120, calcium 8.0. Hematology: Her hemoglobin on 04/09/17 was 7.3, with a hematocrit of 21. Platelets of 153. PHYSICAL EXAMINATION ON DAY OF DISCHARGE: Vital signs: Temperature of 98.7, pulse 71, respirations 16, oxygen saturation 94%. Blood pressure 115/39. She looks pale. No cyanosis, jaundice, clubbing or lymphadenopathy. Warm and well perfused. Cardiovascular system: The pulse was regular. Normal in character and volume. Venous pressure was not elevated. Heart sounds were normal. No added sounds are murmur. No pedal edema. Respiratory system: Chest was clear. Abdomen: No distension, masses, tenderness or organomegaly. Bowel sounds are present. Nervous system: She is alert, with some help she was oriented x3. Cranial nerves II through XII intact. Speech was normal. Arms and legs full power, normal turn and coordination. ASSESSMENT AND PLAN: 1. Right intertrochanteric femur fracture. This has been surgically managed. She is going to require rehabilitation. I note she is a good candidate. She has been swimming every day and actively working in her garden. She has strong motivation. She will be discharged to [facility] for this purpose. I will see her as an outpatient. 2. Anemia. I have chosen not to transfuse her. She has no adverse symptoms from her anemia. I have started her on iron sulfate and vitamin C, which she should take together each day. 3. Constipation. This is secondary to opioid use. I have prescribed some MiraLAX. 4. Hypertension. This is controlled. 5. History of carotid endarterectomy. She will remain on aspirin 81 mg a day. 6. DVT prophylaxis/anticoagulation. She is currently being bridged with Lovenox 30 mg a day subcutaneously. I have started her on warfarin 5 mg daily. She will require daily INR with a target of 2.5. Once INR reaches 2.0, her Lovenox can be stopped. I have considered the risks and benefits of additional aspirin 81 mg per day and have considered that she should be on this drug as well. This was discussed with the patient and her daughter, Xin. 7. Osteoporosis. I will consider management of this when she sees me as an outpatient. 8. Stage III chronic renal disease. This is stable. 9. Mild memory loss. This is a penitentiary problem. At present, I do not think this is a challenge for her rehabilitation. DISCHARGE MEDICATIONS: 1. Ascorbic acid 500 mg daily. 2. Ferrous sulfate 325 mg daily, taken at the same time with ascorbic acid. 3. Enoxaparin 30 mg subcutaneously daily until her INR reaches 2.0. 4. Magnesium hydroxide 30 mL orally every 12 hours as needed for constipation. 5. Polyethylene glycol (MiraLAX) 17 g daily as needed for constipation. 6. Warfarin 5 mg at 1700 hours each day. She should have daily INR, when she reaches an INR of 2, this should be reduced to 2.5 mg daily. 7. Oxycodone 5/325 mg 1 tablet every four hours as needed, not to exceed 6 tablets a day. 8. Pravastatin 80 mg q.h.s. 9. VESIcare 5 mg daily. 10. Lisinopril 20 mg daily. 11. Aspirin 81 mg daily. 12. Calcium 800 mg daily. ACTION ITEMS: 1. Daily INR. 2. When the INR reaches greater than 2, stop the enoxaparin and reduce the warfarin to 2.5 mg daily. 3. Anemia. Check hemoglobin and hematocrit early next week. She should take iron and vitamin C together in order to overcome her anemia. [id number]/[facility] #: [id number] [facility]
--- NOTE | 2017-04-12 22:16 | ED ---
Simone Baer SooYoung, scribed for Jarret Tripathi MD on 04/05/17 at 1724 . Lower Extremity - HPI Summary HPI Summary: An 87 y/o F presents to ED with R lateral hip pain onset TRANS ROUTER. Pt was gardening when she fell. Pain rated as 5 out of 10. Associated sx: abrasions to R forearm. Denies head trauma, SOB, CP, dizziness, neck pain, back pain, rib pain. Pt lives alone. - History of Current Complaint Chief Complaint: EDExtremityLower Stated Complaint: RT HIP PAIN Time Seen by Provider: 04/05/17 17:17 Hx Obtained From: Patient Mechanism Of Injury: Fall From A Standing Position Onset of Pain: Immediate, Prior to Arrival Onset/Duration: Still Present Severity Initially: Moderate Severity Currently: Moderate Pain Intensity: 5 Pain Scale Used: 0-10 Numeric Timing: Constant Location: Is Discrete @ - R hip Associated Signs And Symptoms: Positive: Other - abrasion to R elbow. Negative : Dizziness Aggravating Factor(s): Standing, Ambulation, Movement, Weight Bearing Able to Bear Weight: No - Allergies/Home Medications Allergies/Adverse Reactions: Allergies Allergy/AdvReac Type Severity Reaction Status Date / Time No Known Allergies Allergy Verified 10/30/15 13:37 PMH/Surg Hx/FS Hx/Imm Hx Previously Healthy: No Endocrine/Hematology History: Denies: Hx Diabetes Cardiovascular History: Reports: Hx Hypertension - ON MEDS Denies: Hx Pacemaker/ICD History: Reports: Hx Renal Disease - abnormal gfr Denies: Hx Dialysis Musculoskeletal History: Denies: Hx Osteoporosis Sensory History: Denies: Hx Hearing Aid Psychiatric History: Denies: Hx Panic Disorder - Surgical History Surgery Procedure, Year, and Place: EAR DRUMS RUPTURED CHILD FROM EAR INFECTION. CAROTID ARTERY SURGERY 03/13/05 OPERATIVE NOTES STATE STENT WAS PUT IN AND REMOVED SAME DAY. CATARACT - Social History Occupation: Retired Lives: Alone Review of Systems Negative: Fever, Chills Negative: Erythema Negative: Sore Throat Negative: Chest Pain Negative: Shortness Of Breath, Cough Negative: Abdominal Pain, Vomiting, Nausea Negative: dysuria, hematuria Positive: Arthralgia - R hip pain. Negative: Edema Positive: Other - pos: abrasions to R forearm. Negative: Rash Neurological: Other - neg: dizziness All Other Systems Reviewed And Are Negative: Yes Physical Exam - Summary Physical Exam Summary: Constitutional: Well-developed, Well-nourished, Alert, Cooperative Skin: Warm, Dry, TWO 1CM X 0.5CM SKIN TEARS TO R ELBOW HENT: Normocephalic; No Racoons eyes; No battles sign; No abrasion; No contusion ; No hemotympanum; No maxilla facial tenderness or instability; Dentition are smooth; No dental trauma; No trismus Eyes: EOM normal, PERRL Neck: Trachea is midline. No stridor; No JVD; No step off; No posterior cervical spine tenderness Cardio: Rhythm regular, rate normal Heart sounds normal; Intact distal pulses; The pedal pulses are 2+ and symmetric. Radial pulses are 2+ and symmetric. Pulmonary/Chest wall: Effort normal; Breath sounds normal; Equal chest rise; No flail segment; No rib tenderness; No sternal tenderness Abd: Soft, Appearance normal. No distension; No tenderness; No palpable pulsatile mass; No Cullens sign; No Munoz-Turners sign Musculoskeletal: Full ROM and no tenderness at ankles, shoulders, elbows and knees; RLE IS EXTERNALLY ROTATED AND TENDER TO PALPATION ANTERIOR AND POSTERIORLY; UNABLE TO LIFT LEG. No joint swelling; No vertebral body tenderness ; No paraspinal tenderness; No step off or deformity of the spine; Pelvis is stable to lateral compression and rock Neuro: Alert, Oriented x3, Strength 5/5 all extremities. : No blood at urethral meatus Psych: Mood and affect Normal Triage Information Reviewed: Yes Vital Signs On Initial Exam: Initial Vitals Temp Pulse Resp BP Pulse Ox 36.5 C 72 14 170/77 97 04/05/17 17:15 04/05/17 17:15 04/05/17 17:15 04/05/17 17:15 04/05/17 17:15 Vital Signs Reviewed: Yes Diagnostics - Vital Signs Vital Signs Temp Pulse Resp BP Pulse Ox 04/05/17 17:30 67 163/66 96 04/05/17 17:25 71 96 04/05/17 17:23 170/77 04/05/17 17:15 36.5 C 72 14 170/77 97 - Laboratory Lab Results: Lab Results 04/05/17 04/05/17 Range/Units 17:45 17:45 WBC 6.9 (3.5-10.8) 10^3/ul RBC 4.58 (4.0-5.4) 10^6/ul Hgb 13.0 (12.0-16.0) g/dl Hct 40 (35-47) % MCV 86 (80-97) fL MCH 28 (27-31) pg MCHC 33 (31-36) g/dl RDW 16 H (10.5-15) % Plt Count 237 (150-450) 10^3/ul MPV 8 (7.4-10.4) um3 Sodium 132 L (133-145) mmol/L Potassium 4.0 (3.5-5.0) mmol/L Chloride 103 (101-111) mmol/L Carbon Dioxide 25 (22-32) mmol/L Anion Gap 4 (2-11) mmol/L BUN 38 H (6-24) mg/dL Creatinine 1.28 H (0.51-0.95) mg/dL Est GFR ( Amer) 51.0 (>60) Est GFR (Non-Af Amer) 39.6 (>60) BUN/Creatinine Ratio 29.7 H (8-20) Glucose 103 H (70-100) mg/dL Calcium 9.9 (8.6-10.3) mg/dL Result Diagrams: 04/09/17 05:12 04/08/17 05:37 Lab Statement: Any lab studies that have been ordered have been reviewed, and results considered in the medical decision making process. - Radiology HIP/PELVIS XR Xray Interpretation: Positive (See Comments) - IMPRESSION: MINIMALLY DISPLACED INTERTROCHANTERIC FRACTURE OF THE RIGHT FEMUR. ED physician has reviewed this radiology report and agrees Radiology Interpretation Completed By: Radiologist CXR Xray Interpretation: Positive (See Comments) - IMPRESSION: HYPERINFLATION. NO ACTIVE CARDIOPULMONARY DISEASE. ED physician has reviewed this radiology report and agrees. Radiology Interpretation Completed By: Radiologist FEMUR XR Radiology Interpretation Completed By: Radiologist - pending read from radiologist. [facility] for full [facility]. Re-Evaluation - Re-Evaluation 1 Re-Evaluation Time: 18:32 Change: Unchanged Comment: Updated pt's daughter by phone. Pt has hip fx. Lower Extremity Course/Dx - Course Course Of Treatment: An 87 y/o F presents to ED with R lateral hip pain onset TRANS ROUTER. Pt was gardening when she fell. Pain rated as 5 out of 10. Associated sx: abrasions to R forearm. Denies head trauma, SOB, CP, dizziness, neck pain, back pain, rib pain. Pt lives alone. Pt given Tylenol, [place], morphine in ED. Bloodwork results are without significant abnormality except BUN/C ratio of 29.7. Hip/pelvis XR shows "MINIMALLY DISPLACED INTERTROCHANTERIC FRACTURE OF THE RIGHT FEMUR." CXR shows "HYPERINFLATION. NO ACTIVE CARDIOPULMONARY DISEASE. ". Discussed with ortho, pt will be admitted. - Diagnoses Provider Diagnoses: Fracture, intertrochanteric, right femur - Physician Notifications Discussed Care Of Patient With: Mic Burns - ortho Time Discussed With Above Provider: 18:31 Instructed by Provider To: Admit As Inpatient Discharge - Discharge Plan Condition: Stable Disposition: ADMITTED TO [facility] The documentation as recorded by the Simone hebert SooYoung accurately reflects the service I personally performed and the decisions made by me, Jarret Tripathi MD.
--- NOTE | 2017-04-21 03:50 | OP ---
CC: Dr. Miller * DATE OF OPERATION: 04/06/17 - ROOM #335 DATE OF : 34 SURGEON: Mic Burns MD WAREHOUSE DELIVERY MANAGER: SARAH Amaya ANESTHESIOLOGIST: Dr. Bernal. ANESTHESIA: Spinal. PRE-OP DIAGNOSIS: Right hip intertrochanteric hip fracture. POST-OP DIAGNOSIS: Right hip intertrochanteric hip fracture. OPERATIVE PROCEDURE: Right hip trochanteric femoral nail. COMPLICATIONS: None. ESTIMATED BLOOD LOSS: Minimal. IMPLANTS USED: Synthes short TFN size 11 with the appropriate length proximal interlocking and distal interlocking screws. INDICATIONS: Briefly, Estee Wang is an 87-year-old female who sustained a mechanical fall on 04/05/17 and was brought to the ED, diagnosed with intertrochanteric hip fracture on the right side. Risks and benefits of surgery versus nonoperative treatment were discussed at length. She underwent preoperative medical risk assessment and optimization, after which she was kept as n.p.o. and deemed medically optimized for surgery. Risks include, but are not limited to bleeding, infection, damage to nerves, vessels, surrounding structures, the wound nonhealing, persistent pain, need for further surgery, scarring, stiffness, incomplete relief of symptoms, risk of DVT, risk of anesthesia, and loss of mobility. DESCRIPTION OF PROCEDURE: The patient was greeted in the preoperative area by the attending surgeon. The correct extremity was marked and consent was confirmed. The patient was brought back to the operating suite where she underwent spinal anesthesia after which the patient was placed on the traction table where the operative extremity in the traction boot. The nonoperative extremity was placed in a well leg alexander that was well padded and secured. An SCD was placed in the well leg alexander. Her right arm is draped over her body and once the gentle traction was placed on the hip with reduction that was confirmed under fluoroscopic guidance, the right leg was prepped and draped in usual sterile fashion beginning with chlorhexidine soap. scrub, and alcohol wipe and a final prep with ChloraPrep. After appropriate surgical pause indicating side, site, procedure, and administration of antibiotics, a 5-cm incision proximal to the trochanter was then made sharply with a 10 blade. The soft tissues were carefully dissected to expose the fascia. The IT band fascia was then sharply incised using a 10 blade. Soft tissues were carefully dissected and blunt dissection was obtained and found the tip of the trochanter, which was comminuted. The guidewire was placed in the appropriate location, this was confirmed in AP and lateral views. After this was done, a size 16 mm starting reamer was used to drill the trochanter and access the canal. Appropriate size nail was then secured and brought to the table and gently inserted under fluoroscopic visualization to confirm placement. A derotation guidewire was first placed to the femoral neck to make sure there was no spinning or flexing of the neck. After this was done , a 125 guidearm was assembled and the guidewire was positioned appropriately low into the neck with care not to be too anterior or too posterior. After which the lateral cortex was penetrated using appropriate drill bit and the blade was impacted into position. The guidearm was removed and the distal interlock was then placed through the guide. This was then confirmed under fluoroscopic visualization. Final images were obtained and the prosthesis was found to be in good alignment. The wounds were copiously irrigated with sterile saline. The wounds were closed in layer with 0 Vicryl in the fascia, 2- 0 Vicryl in the subcutaneous tissues and rashad for the skin. The wounds were injected with 0.25% Marcaine plain. Sterile dressings were applied. She was awoken from anesthesia, transferred to PACU in stable condition. POSTOPERATIVE PLAN: She will be weightbearing as tolerated. She will be on 24 hours of antibiotics postoperatively. She will be on DVT prophylaxis for at least 6 weeks. I will follow the patient while she is in the hospital. [id number]/CPS #: [id number] JULIO
== END 2017-04-09 10:20 | DRG 482 ==
LOC: ED 17:01 → SSU 18:49
PROVIDERS: ADMIT Internal Medicine; ATTEND Internal Medicine
PROC: 0QH636Z Insertion of Intramedullary Internal Fixation Device into Right Upper Femur, Percutaneous Approach (ICD-10-PCS; principal; 2017-04-06 11:00)
DX: S72.141A Displaced intertrochanteric fracture of right femur, initial encounter for closed fracture (principal); I13.10 Hypertensive heart and chronic kidney disease without heart failure, with stage 1 through stage 4 chronic kidney disease, or unspecified chronic kidney disease; G30.0 Alzheimer's disease with early onset; F02.80 Dementia in other diseases classified elsewhere, unspecified severity, without behavioral disturbance, psychotic disturbance, mood disturbance, and anxiety; N18.3 Chronic kidney disease, stage 3 (moderate); D64.9 Anemia, unspecified; M81.0 Age-related osteoporosis without current pathological fracture; Y93.H2 Activity, gardening and landscaping; K59.03 Drug induced constipation; T40.2X5A Adverse effect of other opioids, initial encounter; Y92.230 Patient room in hospital as the place of occurrence of the external cause; E78.5 Hyperlipidemia, unspecified; Z79.82 Long term (current) use of aspirin; Z87.891 Personal history of nicotine dependence; W01.0XXA Fall on same level from slipping, tripping and stumbling without subsequent striking against object, initial encounter
CPT/HCPCS: 36415; 71010; 80048; 85014; 85018; 85025; 85027; 85049; 85610; 93005; A9270-GY; C1713; C1776; J0690; J1644; J1650; J2250; J2270

== ENCOUNTER 2018-09-10 12:59 | Emergency (ER) | payer MEDICARE ==
[2018-09-10 13:13] VITALS: BP 162/70
--- NOTE | 2018-09-10 13:27 | UC ---
Upper Extremity HPI - HPI Summary HPI Summary: 88-year-old female presents with her daughter with complaints of right upper arm pain after tripping and falling in her home onto a carpeted hardwood floor on 09/06/2018. Patient states she sustained several bruises and abrasions to her left forearm and left knee but denies any other injuries. States she did not hit her head or lose consciousness. Daughter states that she heard the patient fall and was immediately present and helped her to her feet. She's been able to walk and bear weight since the time of injury as well as in the clinic. - History of Current Complaint Chief Complaint: UCUpperExtremity Stated Complaint: ARM INJURY Time Seen by Provider: 09/10/18 13:20 Hx Obtained From: Patient Pain Intensity: 5 - Allergies/Home Medications Allergies/Adverse Reactions: Allergies Allergy/AdvReac Type Severity Reaction Status Date / Time No Known Allergies Allergy Verified 09/10/18 13:13 Home Medications: Home Medications Multivit with Calcium,Iron,Min [Multiple Vitamins For Women] 1 tab PO DAILY [History Confirmed 09/10/18] PMH/Surg Hx/FS Hx/Imm Hx Endocrine History: Dyslipidemia, Other - Osteoporosis Cardiovascular History: Hypertension, Other - Atherosclerosis - Surgical History Surgical History: Yes Surgery Procedure, Year, and Place: EAR DRUMS RUPTURED CHILD FROM EAR INFECTION. CAROTID ARTERY SURGERY 03/13/05 OPERATIVE NOTES STATE STENT WAS PUT IN AND REMOVED SAME DAY. CATARACT - Family History Known Family History: Positive: Non-Contributory - Social History Occupation: Retired Lives: With Family Alcohol Use: Occasionally Substance Use Type: None Smoking Status (MU): Former Smoker Have You Smoked in the Last Year: No - Immunization History Most Recent Influenza Vaccination: none Most Recent Pneumonia Vaccination: Pt states she has had this vaccince Review of Systems All Other Systems Reviewed And Are Negative: Yes Constitutional: Positive: Negative Skin: Positive: Bruising Respiratory: Positive: Negative Cardiovascular: Positive: Negative Gastrointestinal: Positive: Negative Genitourinary: Positive: Negative Motor: Negative: Weakness Neurovascular: Negative: Decreased Sensation Musculoskeletal: Positive: Other: - See HPI Neurological: Positive: Negative Is Patient Immunocompromised?: No Physical Exam - Summary Physical Exam Summary: GENERAL APPEARANCE: Alert and cooperative, and appears to be in no acute distress. HEAD: Atraumatic. normocephalic. EYES: PERRL, EOM intact. Vision is grossly intact. NECK: Neck supple, non-tender. CARDIAC: Normal S1 and S2. No S3, S4 or murmurs. Rhythm is regular. There is no peripheral edema, cyanosis or pallor. Extremities are warm and well perfused. Capillary refill is less than 2 seconds. Peripheral pulses intact. LUNGS: Clear to auscultation without rales, rhonchi, wheezing or diminished breath sounds. ABDOMEN: Positive bowel sounds. Soft, nondistended, nontender. No guarding or rebound. No masses or hepatosplenomegally. MUSKULOSKELETAL: Tenderness over the right proximal humerus without ecchymosis or gross deformity. Abduction reduced due to pain. Circulation and sensation intact disatally. BACK: Examination of the spine reveals mild-moderate kyphosis, no spinal deformity or tenderness, decreased range of motion or muscular spasm. NEUROLOGICAL: Strength and sensation symmetric and intact throughout. SKIN: Skin normal color, texture and turgor. There is eccymosis with several healing superficial abrasions noted to the left forearm and just below the left knee. Triage Information Reviewed: Yes Vital Signs: Initial Vital Signs Temp 97.8 F 09/10/18 13:08 Pulse 88 09/10/18 13:08 Resp 18 09/10/18 13:08 BP 162/70 09/10/18 13:08 Pulse Ox 97 09/10/18 13:08 Vital Signs Reviewed: Yes Images Front/Back of Body, Lg (Cascade): 1 - Ecchymosis with superficial abrasions 2 - Eccymosis with superficial abrasions Diagnostics - Radiology No standard instances Radiology Interpretation Completed By: Radiologist Summary of Radiographic Findings: Patient Name: LEMUEL GIRALDO Medical Record#: [id number]. Ordering Physician: Zoran Wyatt NP Acct.#: [id number]. : 1930 Age: 88 Sex: F Location: [facility]. Exam Date: 1331 ADM Status: REG ER. Order Information: HUMERUS RIGHT. Accession Number: [id number]. CPT: 51574. Indication: Fall, right arm injury. 2 views of the right arm demonstrates no definite fracture. There appears to be chronically subluxed humeral head consistent with chronic rotator cuff tear. IMPRESSION: No definite fracture of the right humerus is noted. Upper Extremity Course/Dx - Course Course Of Treatment: 88-year-old female presents with her daughter with complaints of right upper arm pain after tripping and falling in her home onto a carpeted hardwood floor on 09/06/2018. Patient states she sustained several bruises and abrasions to her left forearm and left knee but denies any other injuries. States she did not hit her head or lose consciousness. Daughter states that she heard the patient fall and was immediately present and helped her to her feet. She's been able to walk and bear weight since the time of injury as well as in the clinic. Afebrile. Vital signs are stable. Exam reveals an alert older female in no acute distress with some tenderness to her proximal right humerus without ecchymosis or gross deformity. There is no tenderness with palpation to the shoulder joint although she does have some decreased range of motion particularly with abduction due to pain. X-ray showed a chronic subluxation of the humeral head consistent with an old rotator cuff tear but no acute fracture. Patient confirmed that she did have a rotator cuff tear in the past that was not repaired after reviewing these results with her. I suspect that she has a contusion on the upper arm related to the fall and I'm recommending symptomatic treatment including acetaminophen, rest, and ice. She is to follow-up with her primary care provider in 5-7 days if symptoms do not improve. Anticipatory guidance and warning symptoms were reviewed with the patient and her daughter. Verbalized understanding and agreed with plan of care. - Differential Dx/Diagnosis Differential Diagnosis/HQI/PQRI: Contusion, Fracture (Closed), Hematoma, Sprain Provider Diagnosis: Contusion, upper arm Discharge - Sign-Out/Discharge Documenting (check all that apply): Patient Departure All imaging exams completed and their final reports reviewed: Yes - Discharge Plan Condition: Stable Disposition: HOME Patient Education Materials: Contusion in Adults (ED) Referrals: Marlon Miller MD [Primary Care Provider] - Additional Instructions: The x-ray performed in the clinic today showed some old changes consistent with a chronic rotator cuff tear but no evidence of an acute fracture. I suspect that your pain is from a contusion of the upper arm related to your fall. Rest the arm as much as possible. Avoid heavy lifting or strenuous activities. Apply ice to the affected area for 15-20 minutes 3-4 times a day to help with pain and swelling. Take acetaminophen (Tylenol) according to directions as needed for pain. Follow up with your primary care provider in 5-7 days if symptoms do not improve. Seek immediate medical attention in the emergency room if you have worsening pain that is not managed with pain medication, you lose function of the arm, develop numbness or tingling in the arm, hand, or fingers, or have any worsening of symptoms. - Billing Disposition and Condition Condition: STABLE Disposition: Home - Attestation Statements Provider Attestation: Per institutional requirements, I have reviewed the chart, however, I was not consulted specifically or made aware of this patient by the midlevel provider. I did not personally evaluate, interact with , or disposition this patient.
== END 2018-09-10 14:18 | disposition home or self-care (01) ==
LOC: UCEAST 12:59
DX: S40.021A Contusion of right upper arm, initial encounter (principal); I10 Essential (primary) hypertension; Z87.891 Personal history of nicotine dependence; W18.40XA Slipping, tripping and stumbling without falling, unspecified, initial encounter; Y92.009 Unspecified place in unspecified non-institutional (private) residence as the place of occurrence of the external cause
CPT/HCPCS: 99211; G0463

== ENCOUNTER 2021-01-23 23:08 | Observation (INO) ==
[~2021-01-23 23:08] MED LIST: Buffered Lidocaine 1% SYRIN 1 ml INTRADERM ONE
[2021-01-23] MEDS ORDERED: hydrALAZINE 20 mg/ml 1 ML Vial IV IV SLOW PU ONE (23:33)
[2021-01-23 23:52] LABS: Urine Appearance Cloudy; Urine Bilirubin Negative (Negative); Urine Blood 2+ (Negative); Urine Color Straw; Urine Glucose Negative (Negative); Urine Ketones Negative (Negative); Urine Nitrite Negative (Negative); Urine Protein Negative (Negative); Urine Specific Gravity 1.003 (1.002-1.030); Urine Urobilinogen Negative (Negative)
[2021-01-23 23:53] LABS: ABS Eosinophils 0.1 10^3/ul (0-0.6); ABS Lymphocytes 1.1 10^3/ul (1.0-4.8); ABS Monocytes 0.4 10^3/ul (0-0.8); ABS Neutrophils 5.8 10^3/ul (1.5-7.7); Eosinophil % 1.2 %; Hematocrit 40 % (35-47); Hemoglobin 13.4 g/dL (12.0-16.0); Lymphocyte % 15.1 %; Mean Corpuscular HGB Conc 33 g/dL (31-36); Mean Corpuscular Hemoglobin 29 pg (27-31); Mean Corpuscular Volume 89 fL (80-97); Mean Platelet Volume 7.7 fL (7.4-10.4); Platelet Count 207 10^3/uL (150-450); Red Blood Count 4.56 10^6 /uL (3.70-4.87); Red Cell Distribution Width 14 % (10-15); White Blood Count 7.5 10^3/uL (3.5-10.8)
[2021-01-24 00:11] LABS: Albumin/Globulin Ratio 1.5 (1-3); EGFR African American 76.4 (>60); EGFR Non-African American 63.1 (>60); Globulin 2.6 g/dL (2-4); Potassium 3.9 mmol/L (3.5-5.0); Total Bilirubin 0.5 mg/dL (0.2-1.0); Total Protein 6.6 g/dL (6.4-8.9)
[2021-01-24 00:12] LABS: Troponin I 0.01 ng/mL (<0.03)
[2021-01-24 00:19] LABS: Urine Bacteria 1+ (Absent); Urine Red Blood Cell 2+(6-10/hpf) (Absent); Urine Squamous Epithelial Cell Present (Absent); Urine White Blood Cell 3+(>20/hpf) (Absent)
[2021-01-24] MEDS: Erythromycin OPTH OINT APPLIC OINT LEFT EYE SCH ×4 (00:46→20:34)
[2021-01-24] MEDS ORDERED: hydrALAZINE 20 mg/ml 1 ML Vial IV IV SLOW PU ONE ×2 (01:18→02:27)
[2021-01-24] MEDS: LORazepam 2 mg VIAL 1 ml IV PUSH ONE ×2 (02:46→02:47)
[2021-01-24] MEDS: cefTRIAXone 1 gm/50 mL NS BAG 1 GM/50 ML BAG IVPB SCH (05:07)
[2021-01-24 07:39] LABS: ABS Eosinophils 0.1 10^3/ul (0-0.6); ABS Lymphocytes 1.2 10^3/ul (1.0-4.8); ABS Monocytes 0.6 10^3/ul (0-0.8); ABS Neutrophils 7.4 10^3/ul (1.5-7.7); Eosinophil % 1.6 %; Hematocrit 44 % (35-47); Hemoglobin 14.8 g/dL (12.0-16.0); Lymphocyte % 13.3 %; Mean Corpuscular HGB Conc 34 g/dL (31-36); Mean Corpuscular Hemoglobin 30 pg (27-31); Mean Corpuscular Volume 87 fL (80-97); Mean Platelet Volume 7.7 fL (7.4-10.4); Platelet Count 244 10^3/uL (150-450); Red Blood Count 4.99 10^6 /uL (3.70-4.87); Red Cell Distribution Width 14 % (10-15); White Blood Count 9.4 10^3/uL (3.5-10.8)
[2021-01-24 07:50] LABS: Calcium 9.6 mg/dL (8.6-10.3); EGFR African American 79.6 (>60); EGFR Non-African American 65.8 (>60); Magnesium 1.9 mg/dL (1.9-2.7); Potassium 3.6 mmol/L (3.5-5.0)
[2021-01-24] MEDS: CMCS: Pravastatin 20 mg TAB (NF) PO SCH (09:22)
[2021-01-25] MEDS: cefTRIAXone 1 gm/50 mL NS BAG 1 GM/50 ML BAG IVPB SCH (04:50)
[2021-01-25] MEDS: Erythromycin OPTH OINT APPLIC OINT LEFT EYE SCH ×2 (08:07→13:19)
[2021-01-25] MEDS: CMCS: Pravastatin 20 mg TAB (NF) PO SCH (08:07)
[2021-01-25 11:47] VITALS: BP 154/55
== END 2021-01-25 14:45 | disposition home or self-care (01) ==
LOC: ED 23:08 → MEDTELE 23:08
PROVIDERS: ADMIT Hospitalist; ATTEND Internal Medicine